=== PATIENT | female | born 1965 | race Caucasian/White ===

== ENCOUNTER 2019-01-04 09:56 | Emergency (ER) | payer BC ==
[~2019-01-04] VITALS: Ht 170.2 cm; Wt 77.1 kg
--- NOTE | 2019-01-04 10:23 | PHYS DOC ---
Adult General Chief Complaint Chief Complaint: cardiorespiratory addressed HPI HPI Patient is a 53 year old female who brought in by EMS because of cardiorespiratory arrest. Patient was diagnosed with metastatic lung cancer to brain, pancreas, ovaries about 2 months ago and had chemotherapy and was getting ready today to go for her radiation therapy of her brain but suddenly became unresponsive while getting into the car to go to the hospital with her sister and 911 was informed at 0931 and CPR was started bystander. EMS arrived at 0933 and patient was unresponsive. Patient had shockable rhythm and had 1 loose time shock with no splinting no sparse or bleeding. CPR was continued with several doses of epinephrine, SHIKHA tube placement and manually bagging the patient. Patient brought in with CPR in progress without spontaneous pulse or breathing with dilated fixed pupils. Review of Systems Review of Systems Unable to obtain, CPR in progress Physical Exam Physical Exam Constitutional: Unresponsive, CPR in progress HENT: Atraumatic Eyes: Fixed dilated pupil Neck: Atraumatic Cardiovascular: No spontaneous cardiac activity without CPR Lungs & Thorax: No spontaneous respiratory activity, good bilateral breath sounds with manual bagging Abdomen: Atraumatic Skin: Cold andpale Extremities: 3+ bilateral lower extremity edema Neurologic: Unresponsive, CPR instruction EKG EKG [] Radiology/Procedures Radiology/Procedures [] Course & Med Decision Making Course & Med Decision Making Pertinent Labs reviewed. (See chart for details) Evaluation of patient in ER showed 53-year-old female patient with stage IV lung cancer brought in because of cardiorespiratory arrest. Patient had PE and asystole without spontaneous pulse without CPR. CPR was stopped at 1009 after 36 minutes of unsuccessful CPR. Patient did not have electrolyte or blood sugar abnormalities. Patient's family was informed about patient care and outcome of her CPR. Primary care physician Dr. Villar was informed at 1040 and 1053 and agreed to write certificate. Dragon Disclaimer Dragon Disclaimer This electronic medical record was generated, in whole or in part, using a voice recognition dictation system. Departure Departure Impression: Primary Impression: Cardiorespiratory arrest Additional Impression: Primary lung cancer with metastasis from lung to other site Disposition: 20 (at 1009) Condition: Referrals: UNKNOWN PCP NAME (PCP) Critical Care Time Critical care time was 35 minutes exclusive of procedures. Problem Qualifiers MARCIA LANCASTER MD Jan 04, 2019 10:23
[2019-01-04] MEDS ORDERED: ADENOSINE 6 MG/2 ML VIAL. IV ONE (12:00)
[2019-01-05 06:47] LABS: CREATININE ISTAT 0.9 mg/dL (0.5-1.4); HEMOGLOBIN ISTAT 9.2 g/dL (12-15); ION CA ISTAT 1.05 mmol/L (1.13-1.32); POTASSIUM ISTAT 4.1 mmol/L (3.5-5.0)
== END 2019-01-04 10:09 | disposition expired ==
LOC: ER 09:56
DX: I46.9 Cardiac arrest, cause unspecified (principal); C79.31 Secondary malignant neoplasm of brain; C34.90 Malignant neoplasm of unspecified part of unspecified bronchus or lung; R60.0 Localized edema; H57.04 Mydriasis
CPT/HCPCS: 80047; 82962; 84484; 92950; 99285; J0153; 99283